=== PATIENT | female | born 1960 | race Caucasian/White ===

== ENCOUNTER 2019-11-17 14:34 | Outpatient (CLI) | payer BC ==
--- NOTE | 2019-11-17 15:07 | MMO ---
Right Breast MAMMO Unilat Diag DDI RT+BERONICA. CLINICAL HISTORY: Patient is 58 years old and is seen for additional evaluation requested at current screening. The patient has no family history of breast cancer. The patient has no personal history of cancer. VIEWS: The views performed were: right craniocaudal spot compression magnification; right mediolateral spot compression magnification; and right mediolateral with tomosynthesis. FILMS COMPARED: The present examination has been compared to prior imaging studies performed at [facility] on 11/05/2019, and at [facility] on 01/14/2015, 02/11/2016 and 04/24/2017. This study has been interpreted with the assistance of computer-aided detection. MAMMOGRAM FINDINGS: There are scattered fibroglandular densities. There are benign appearing calcifications seen in the right breast. Milk of calcium is demonstrated on the ML magnification view. There are no suspicious masses, suspicious calcifications, or new areas of architectural distortion. IMPRESSION: THERE IS NO MAMMOGRAPHIC EVIDENCE OF MALIGNANCY. A ROUTINE FOLLOW-UP MAMMOGRAM IN 1 YEAR IS RECOMMENDED. THE RESULTS OF THIS EXAM WERE SENT TO THE PATIENT. ACR BI-RADS Category 2 - Benign finding MAMMOGRAPHY NOTE: 1. A negative mammogram report should not delay a biopsy if a dominant of clinically suspicious mass is present. 2. Approximately 10% to 15% of breast cancers are not detected by mammography. 3. Adenosis and dense breasts may obscure an underlying neoplasm. Reported by: ALEXX SANDERS MD Electonically Signed: [id number]
== END 2019-11-17 14:35 | disposition home or self-care (01) ==
LOC: BICMAMMO 14:34
PROVIDERS: ATTEND Obstetrics & Gynecology
DX: R92.8 Other abnormal and inconclusive findings on diagnostic imaging of breast (principal)
CPT/HCPCS: G0279

== ENCOUNTER → 2021-12-20 | Day surgery (SDC) | payer BC | END | disposition home or self-care (01) | LOC: MAMMO 07:01 | PROVIDERS: ATTEND Obstetrics & Gynecology | PROC: 0H9T3ZX Drainage of Right Breast, Percutaneous Approach, Diagnostic (ICD-10-PCS; principal; 2021-12-20) | DX: D05.11 Intraductal carcinoma in situ of right breast (principal) | CPT/HCPCS: 19283; 76098; 88305; 88341; 88342 ==

== ENCOUNTER 2022-04-17 14:43 | Outpatient (CLI) | payer BC | END 2022-04-17 14:44 | disposition home or self-care (01) | LOC: BICMAMMO 14:43 | PROVIDERS: ATTEND Internal Medicine Hematology & Oncology | DX: Z13.820 Encounter for screening for osteoporosis (principal); Z78.0 Asymptomatic menopausal state; E07.9 Disorder of thyroid, unspecified; M81.0 Age-related osteoporosis without current pathological fracture; M85.851 Other specified disorders of bone density and structure, right thigh; M85.852 Other specified disorders of bone density and structure, left thigh | CPT/HCPCS: 77080 ==

== ENCOUNTER 2023-10-31 13:32 | Outpatient (CLI) | payer BC | END 2023-10-31 13:33 | disposition home or self-care (01) | LOC: BICMAMMO 13:32 | PROVIDERS: ATTEND Internal Medicine Hematology & Oncology | DX: M81.8 Other osteoporosis without current pathological fracture (principal); C50.411 Malignant neoplasm of upper-outer quadrant of right female breast | CPT/HCPCS: 77080 ==